=== PATIENT | male | born 1985 | race Caucasian/White ===

== ENCOUNTER 2017-01-26 17:42 | Emergency (ER) | payer BC ==
--- NOTE | ~2017-01-26 | ER ---
PATIENT'S NAME: TANIA MENDOZA [facility] AGE: 31 Y [address] ROOM: [place] [address] LOCATION: [facility] ADMIT DATE: 01/26/2017 ER/Outpatient Report DISCHARGE DATE: 01/26/2017 FAMILY PHYSICIAN: PHYSICIAN, NO ATTENDING PHYSICIAN: Yon Salvador Admission date and time documented in the medical record. I saw the patient at 1830 hours. CHIEF COMPLAINT: Mid low back pain. HISTORY OF PRESENT ILLNESS: This patient is a 31-year-old male, who has a 2-day history of mid to lower back pain. No fall or trauma. He has had a mild fever at the clinic of 100.6. No bowel or bladder changes. No recent colds, coughs, flus, fever, chills, or sweats other than the temperature of 100.6 at the clinic that he was not aware of. No headache, eyes, ears, nose, throat pain. No neck pain. No chest pain, shortness of breath. No abdominal pain, nausea, vomiting, or diarrhea. No urinary frequency, urgency, or dysuria. No joint or muscle swelling, redness, or pain other than the mid to lower back of the spine. No skin eruptions or rash. No history of neuro changes, psych issues, endocrine problems. The patient does work for [employer] and is on a cruise a lot. The patient was sent here with laboratory study results from the clinic for evaluation per MRI scan of thoracic, lumbosacral spine to rule out diskitis or abscess. HOME MEDICATIONS: None. ALLERGIES: NONE. SOCIAL HISTORY: Nonsmoker. Occasional intake of alcohol. SIGNIFICANT PAST MEDICAL HISTORY: Negative. OPERATIONS: None. REVIEW OF SYSTEMS: All systems reviewed by me are negative with the exception of those discussed in the history of the present illness. PATIENT'S NAME: TANIA MENDOZA [facility] AGE: 31 Y [address] ROOM: [place] [address] LOCATION: [facility] ADMIT DATE: 01/26/2017 ER/Outpatient Report DISCHARGE DATE: 01/26/2017 FAMILY PHYSICIAN: PHYSICIAN, NO ATTENDING PHYSICIAN: Yon Salvador PHYSICAL EXAMINATION: VITAL SIGNS: Temperature 97.5 tympanic, pulse 82, respirations 18, blood pressure 160/87, O2 saturation on room air is 96%. HEENT: Negative. NECK: Full range of motion. No tenderness. No nuchal rigidity. No thyromegaly or cervical adenopathy. SPINE: No point tenderness over the spine. No step-off or deformity. It hurts when he moves. LUNGS: Clear. HEART: Regular. ABDOMEN: Soft, nontender. Good bowel tones. No palpable masses. No CVA tenderness. EXTREMITIES: Intact. Straight leg raising negative. NEUROVASCULAR: Intact. SKIN: Clear. No skin eruptions or rash. LABORATORY DATA AND X-RAYS: MRI scan of the thoracic spine showed no fracture, subluxation, or other abnormalities. MRI scan of the lumbar spine showed no acute fracture, subluxation, or other acute changes. No evidence of diskitis on either CT scan. CT scans read by Radiology, see dictated transcribed report. IMPRESSION: Mid low back pain, etiology uncertain. PLAN: The patient dismissed home. Observation. Activity as tolerated. Aspirin, Tylenol, ibuprofen, or Aleve as needed for pain. Ice, heat, or combination of ice and heat to sore areas intermittently as needed. Follow up with personal physician tomorrow for consultation. Discussed with the patient concerning my findings and recommendations, he understands. MD ORACIO SOFIA/modl /[id number] d: 01/30/17 0055 t: 01/30/17 0420, OUTPATIENT REPORT
== END 2017-01-26 19:55 | disposition disaster alternative care site (69) ==
LOC: GMED 17:42
DX: M54.5 Low back pain (principal)